=== PATIENT | female | born 1995 | race Caucasian/White ===

== ENCOUNTER 2017-02-03 09:19 | Inpatient (IN) ==
[2017-02-03] MEDS ORDERED: ONDANSETRON 4 MG/2 ML VIAL IV PRN ×2 (09:41→12:51)
[2017-02-03] MEDS ORDERED: diphenhydrAMINE 50 MG/1 ML VIAL IV PRN (09:44)
[2017-02-03] MEDS ORDERED: CITRIC ACID/SODIUM CITRATE 30 ML UDCUP PO ONE (09:46)
[2017-02-03] MEDS ORDERED: FAMOTIDINE 20 MG/2 ML VIAL IV ONE (09:46)
[2017-02-03] MEDS ORDERED: SODIUM CHLORIDE 0.9% 100 ML IV ONE (09:49)
[2017-02-03] MEDS ORDERED: AMPICILLIN 2,000 MG VIAL ONE (09:49)
[2017-02-03] MEDS: LACTATED RINGERS 1,000 ML IV SCH ×2 (09:50→11:30)
[2017-02-03] MEDS ORDERED: fentaNYL 2 MCG/ROPIV 0.2% EPID 150 ML EPIDURAL ONE (09:50)
[2017-02-03] MEDS ORDERED: BUTORPHANOL 1 MG/ML VIAL ONE (09:55)
[2017-02-03] MEDS ORDERED: MEPERIDINE 50 MG/1 ML VIAL IV PRN (09:56)
[2017-02-03] MEDS ORDERED: OXYTOCIN/LR 20 UNIT/1,000 ML BAG IV SCH (10:00)
[2017-02-03 10:01] LABS: Basophils % 0.2 % (0.0-0.8); Eosinophils # 0.1 10*3/uL (0.0-0.87); Eosinophils % 0.7 % (0.00-10.9); Hematocrit 37.4 VOL% (35.7-47.0); Hemoglobin 12.8 GM/DL (12.0-16.0); Immature Granulocytes % 0.7 %; Immature Granulocytes Absolute 0.09 #; Lymphocytes # 2.6 10*3/uL (1.4-4.0); Lymphocytes % 19.3 % (21.3-54.2); Mean Corpuscular HGB Conc 34.2 GM/DL (32-36); Mean Corpuscular Hemoglobin 28 PG (27-34); Mean Corpuscular Volume 82.9 FL (87-102); Mean Platelet Volume 10.5 FL (9.6-12.0); Monocytes # 0.9 10*3/uL (0.11-0.8); Monocytes % 6.7 % (1.7-12.7); Neutrophils # 9.7 10*3/uL (1.4-7.4); Neutrophils % 72.4 % (38.7-73.9); Platelet Count 190 T/CUMM (130-400); Red Blood Count 4.51 MC/CUMM (3.8-5.5); Red Cell Distribution Width 13.6 % (9.3-17.3); White Blood Count 13.5 T/CUMM (4-12)
[2017-02-03] MEDS ORDERED: fentaNYL 2 MCG/ROPIV 0.2% EPID 150 ML EPIDURAL SCH (10:11)
[2017-02-03] MEDS ORDERED: PROMETHAZINE 25 MG/1 ML VIAL IM ONE (10:11)
[2017-02-03] MEDS ORDERED: ePHEDrine 50 MG/ML AMP IV PRN (10:11)
[2017-02-03] MEDS ORDERED: ONDANSETRON 4 MG/2 ML VIAL IV ONE (10:11)
--- NOTE | 2017-02-03 10:52 | OB/GYN History & Physical ---
History of Present Illness Chief complaint: 39+5 weeks active labor History of present illness: Ms. Ross is a 21 year old female 2 para 1 at 39+5 weeks estimated gestational age patient Dr. Mendenhall's who presented to labor department in active labor 5 6 cm dilated. Clinical estimated weight is 7 pounds with adequate clinical pelvimetry. Presentation confirmed vertex and she is constantly admitted for expected vaginal delivery. 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 General appearance: no acute distress - Head Head exam: Present: normal inspection, normocephalic, atraumatic - Neck Neck exam: Present: normal inspection - Respiratory Respiratory exam: Present: clear to auscultation bilaterally - Breast Breasts: as per HPI Menstruation: as per HPI - Cardiovascular Cardiovascular exam: Present: regular rate and rhythm - GI/Abdominal GI/Abdominal exam: Present: normal bowel sounds - Extremities Exam Extremities exam: Present: normal inspection, normal capillary refill - Back Exam Back exam: Present: normal inspection - Neurological Exam Neurological exam: Present: alert, oriented X3 - Psychiatric Psychiatric exam: Present: normal affect, normal mood - Skin Skin exam: Present: normal color, warm Assessment and Plan (1) with 39 completed weeks gestation Status: Acute Current Visit: Yes (2) Active labor Status: Acute Current Visit: Yes Results - Labs CBC & BMP: 02/03/17 09:56 Quality Measures - VTE Contraindication to Pharmacological VTE Prophylaxis: Clinical assessment deems Pt at low risk, no prophalaxis needed
[2017-02-03] MEDS ORDERED: METHYLERGONOVINE 0.2 MG/1 ML AMP ONE (12:42)
[2017-02-03] MEDS ORDERED: BISACODYL 10 MG SUPP RECTAL PRN (12:51)
[2017-02-03] MEDS ORDERED: OXYTOCIN/LR 20 UNIT/1,000 ML BAG IV ONE (12:51)
[2017-02-03] MEDS ORDERED: BENZOCAINE 20%/MENTHOL 0.5% SPRAY 56 GM CAN TOP PRN (12:51)
[2017-02-03] MEDS ORDERED: oxyCODONE/ACETAMINOPHEN 5-325 MG TABLET PO PRN (12:51)
[2017-02-03] MEDS ORDERED: WITCH HAZEL PADS 100/JAR TOP PRN (12:51)
[2017-02-03] MEDS ORDERED: RHO(D) IMMUNE GLOBULIN 300 MCG SYRINGE IM ONE (12:51)
[2017-02-03] MEDS ORDERED: ACETAMINOPHEN 325 MG TABLET PO PRN (12:51)
[2017-02-03] MEDS ORDERED: MEASLES/MUMPS/RUBELLA VACCINE 0.5 ML VIAL SUBCUT ONE (12:51)
[2017-02-03] MEDS ORDERED: HYDROCORTISONE 2.5% RECTAL CREAM 30 GM TUBE TOP PRN (12:51)
[2017-02-03] MEDS ORDERED: LANOLIN 50% CREAM 0.3 OZ TUBE TOP PRN (12:51)
[2017-02-03] MEDS ORDERED: DIPH/TET/ACEL PERT BOOSTER VACCINE 0.5 ML VIAL IM ONE (12:51)
--- NOTE | 2017-02-03 12:51 | OB/GYN Progress Note ---
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 Carlos dictating vaginal delivery And in LDR environment under sterile conditions, the patient progressed to completely dilated. She was allowed to push and under [epidural] anesthesia had a normal spontaneous vaginal delivery of a live born female infant unweighed Apgars pending over a intact perineum. The infant's nose and oropharynx were bulb and DeLee suctioned, and the infant had spontaneous cry after delivery. The cord was doubly clamped and cut and the was handed over to the pediatric team for care. Cord blood was obtained the placenta delivered spontaneously intact and IV Pitocin was done. There were no cervical tears. There were no periurethral tears. Estimated blood loss was 250 mL. There were no complications. The bladder was emptied using a catheter prior to delivery. All sponge needle and instrument counts were correct -3 at the end of the delivery. 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
[2017-02-03 13:09] LABS: Apearance,Urine Slightly Hazy (Clear); Bacteria,Urine Occasional /HPF (Few); Bilirubin,Urine Negative (Negative); Blood, Urine Small mg/dL (Negative); Glucose,Urine (UA) Negative (Negative); Ketones,Urine Negative (Negative); Mucus,Urine Occasional /LPF (Occasional); Nitrite,Urine Negative (Negative); Protein,Urine Negative; RBC,Urine 16 /HPF (0-4); Urine Color Yellow (Yellow); Urine Specific Gravity 1.012 (1.001-1.035); Urine Urobilinogen < 2.0 EU/DL (0.2-1.0); WBC,Urine 1 /HPF (0-6)
[2017-02-03] MEDS: IBUPROFEN 800 MG TABLET PO PRN (17:10)
[2017-02-03] MEDS: oxyCODONE/ACETAMINOPHEN 5-325 MG TABLET PO PRN (17:13)
[2017-02-03] MEDS: DOCUSATE SODIUM 100 MG CAPSULE PO SCH (21:50)
[2017-02-04] MEDS: IBUPROFEN 800 MG TABLET PO PRN ×2 (06:16→19:43)
[2017-02-04] MEDS: oxyCODONE/ACETAMINOPHEN 5-325 MG TABLET PO PRN ×2 (06:17→14:51)
[2017-02-04 06:24] LABS: Basophils # 0.1 10*3/uL (0.0-0.2); Basophils % 0.5 % (0.0-0.8); Eosinophils # 0.1 10*3/uL (0.0-0.87); Eosinophils % 1.2 % (0.00-10.9); Hematocrit 33.6 VOL% (35.7-47.0); Immature Granulocytes % 0.7 %; Immature Granulocytes Absolute 0.08 #; Lymphocytes # 2.9 10*3/uL (1.4-4.0); Lymphocytes % 25.6 % (21.3-54.2); Mean Corpuscular HGB Conc 32.7 GM/DL (32-36); Mean Corpuscular Hemoglobin 27 PG (27-34); Mean Corpuscular Volume 83.8 FL (87-102); Mean Platelet Volume 10.8 FL (9.6-12.0); Monocytes # 0.7 10*3/uL (0.11-0.8); Monocytes % 6.5 % (1.7-12.7); Neutrophils # 7.5 10*3/uL (1.4-7.4); Neutrophils % 65.5 % (38.7-73.9); Platelet Count 151 T/CUMM (130-400); Red Blood Count 4.01 MC/CUMM (3.8-5.5); Red Cell Distribution Width 13.5 % (9.3-17.3); White Blood Count 11.4 T/CUMM (4-12)
[2017-02-04] MEDS: DOCUSATE SODIUM 100 MG CAPSULE PO SCH ×2 (09:55→20:52)
[2017-02-04] MEDS: MULTIVITAMIN (PRENATAL) TABLET PO SCH (09:55)
--- NOTE | 2017-02-04 13:50 | OB/GYN Progress Note ---
Assessment and Plan (1) (normal spontaneous vaginal delivery) Status: Acute Assessment and plan: 1. cont. current management 2. 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 seen by bedside, denies any complaints. lochia normal amount. no headaches or blurred vision. no chest pain or shortness of breath. Pt. mood is good. 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 - Constitutional Vitals: Vital Signs Temp Pulse Resp BP Pulse Ox 02/04/17 11:22 97.4 F L 84 20 105/66 97 02/04/17 07:31 97.8 F 70 18 104/69 97 02/04/17 04:00 97.6 F 75 18 104/62 96 02/04/17 03:00 18 02/04/17 02:05 18 02/04/17 00:15 97.0 F L 72 18 109/64 97 02/03/17 19:45 97.3 F L 88 20 118/58 97 02/03/17 18:56 20 02/03/17 18:45 90 15 114/62 97 02/03/17 18:00 18 02/03/17 17:45 95 H 18 113/65 98 02/03/17 17:00 20 02/03/17 16:45 90 20 111/68 98 02/03/17 16:15 90 20 110/72 99 02/03/17 16:00 18 02/03/17 15:45 97.4 F L 93 H 18 112/68 96 General appearance: no acute distress - Respiratory Respiratory exam: Present: clear to auscultation bilaterally - Cardiovascular Cardiovascular exam: Present: regular rate and rhythm - GI/Abdominal GI/Abdominal exam: Present: normal bowel sounds - Extremities Exam Extremities exam: Present: normal inspection Results - Labs CBC & BMP: 02/04/17 06:09
--- NOTE | 2017-02-04 16:54 | Anesthesia Post-Op ---
Anesthesia Post OP - Post Ansesthetic Evaluation Patient seen in post op: Yes Resp: within normal limits CV: within normal limits Mental: within normal limits Temp: within normal limits [id number]: within normal limits Nausea and Vomiting: within normal limits Pain: within normal limits
[2017-02-05] MEDS: oxyCODONE/ACETAMINOPHEN 5-325 MG TABLET PO PRN (00:31)
[2017-02-05] MEDS: DOCUSATE SODIUM 100 MG CAPSULE PO SCH (09:04)
[2017-02-05] MEDS: MULTIVITAMIN (PRENATAL) TABLET PO SCH (09:04)
[2017-02-05 12:15] VITALS: BP 109/67
--- NOTE | 2017-02-05 14:02 | Discharge Summary ---
Hospital Course - Hospital Course Hospital Course: Admitted in labor and delivered without complications. and care uneventful. Discharged in satisfactory condition. Specialty Discharge - Follow Up or Referrals Follow up with: Paola Colbert MD [Physician] - Discharge Plan - Discharge Data Disposition: Disch To Home/Self Care Condition at Discharge: Stable Discharge Diet: advance to your usual diet Activity: resume usual activities as tolerated Hygiene: no restrictions, may shower Weight Bearing at Discharge: weight bear as tolerated Driving: not until seen by doctor Contact your physician if you experience:: fever over 101, Difficulty voiding, Redness or swelling, Shortness of breath, Bleeding, pain uncontrolled by pain medications - Discharge Medications No Action Multivitamin () [ Vitamin] 1 tablet PO DAILY - Follow Up or Referral Follow Up: Paola Colbert MD [Physician] - - Forms/Instructions Instructions: Depression (GEN), Perineal Care (DC), Vaginal Delivery (DC) Exam - Constitutional Vitals: Period Temp Pulse Resp BP Sys/Hill Pulse Ox Last 24 Hr 96.9 F-97.7 F 64-84 18-20 88-119/60-83 96-99 General appearance: no acute distress - Head Head exam: Present: normal inspection - Neck Neck exam: Present: normal inspection - Respiratory Respiratory exam: Present: clear to auscultation bilaterally. Absent: accessory muscle use - Cardiovascular Cardiovascular exam: Present: regular rate and rhythm - GI/Abdominal GI/Abdominal exam: Present: organomegaly (uterus involuting). Absent: tenderness - Extremities Exam Extremities exam: Present: normal inspection - Back Exam Back exam: Present: normal inspection - Skin Skin exam: Present: normal color, warm DS: Provider Date of admission: 02/03/17 09:41 Primary care physician: . No PCP Attending physician on admission: Yvan Blanco Consults: 02/03/17 09:41 Consult to Anesthesiology [CONS] Routine Consulting Provider: Reason for Anesthesiology: Epidural Consult Comment: Epidural for pain managment 02/03/17 12:51 Consult to Application Packager [CONS] Routine Consult Application Packager: Breast Feeding Discharging clinician: Ovidio Alex DO Expected date of discharge: 02/05/17
== END 2017-02-05 15:00 | disposition home or self-care (01) | DRG 560 ==
LOC: N.LDOUT 09:19 → N.LD 09:21 → N.OB 15:58
PROVIDERS: ADMIT Specialist; ATTEND Obstetrics & Gynecology